=== PATIENT | female | born 2000 | race Caucasian/White ===

== ENCOUNTER 2020-09-13 23:58 | Emergency (ER) | payer OTHER ==
[~2020-09-13] VITALS: Ht 165.1 cm; Wt 59.1 kg
[2020-09-14] MEDS ORDERED: ADDERALL10 MG PO (00:17)
[2020-09-14 01:54] VITALS: BP 123/78; PULSE 87; TEMP 98.3
== END 2020-09-14 01:54 | disposition home or self-care (01) ==
LOC: COL.ER 23:58
DX: S81.011A Laceration without foreign body, right knee, initial encounter (principal); F90.9 Attention-deficit hyperactivity disorder, unspecified type; W19.XXXA Unspecified fall, initial encounter